=== PATIENT | male | born 1955 | race Caucasian/White ===

== ENCOUNTER 2016-11-30 01:53 | Emergency (ER) | payer OTHER ==
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
[2016-11-30] MEDS ORDERED: 0.9% Sodium Chloride 1,000 ML IV ONE (02:03)
[2016-11-30] MEDS ORDERED: 0.9% Sodium Chloride 2,000 ML IV ONE (02:03)
[2016-11-30] MEDS ORDERED: Ondansetron 2 mg/mL 2 mL Inj IVPUSH PRN (02:05)
[2016-11-30] MEDS ORDERED: HYDROmorphone 0.5 mg/0.5 mL iSecure Syringe IVPUSH PRN (02:05)
[2016-11-30 02:19] LABS: BASOPHILS % (AUTO) 0.2 % (0-3); EOSINOPHILS % (AUTO) 2.2 % (0-5); MONOCYTES % (AUTO) 4.5 % (4-12); Mean Corpuscular Volume 76.8 fL (81-100); NEUTROPHILS % (AUTO) 74.3 % (40-74); Platelet Count 365 bil/L (150-400)
[2016-11-30 02:38] LABS: INR 1.03 ratio
[2016-11-30] MEDS ORDERED: CeFAZolin 2 Gm/50 mL D5W IV Premix IV ONE (02:45)
[2016-11-30 02:47] LABS: Magnesium 2.2 mg/dL (1.6-2.6)
[2016-11-30 03:28] LABS: APPEARANCE,URINE HAZY (CLEAR,HAZY); COLOR,URINE STRAW (YELLOW); OCCULT BLOOD,URINE MODERATE (NEGATIVE); PH,URINE 5.5 (5.0-8.0); UROBILINOGEN,URINE NORMAL (NORMAL)
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
== END 2016-11-30 04:35 | disposition short-term general hospital (02) ==
LOC: EDBD 01:53 → SED 01:53
DX: S08.112A Complete traumatic amputation of left ear, initial encounter (principal); S01.01XA Laceration without foreign body of scalp, initial encounter; S22.43XA Multiple fractures of ribs, bilateral, initial encounter for closed fracture; S36.00XA Unspecified injury of spleen, initial encounter; S27.1XXA Traumatic hemothorax, initial encounter; Y93.9 Activity, unspecified; Y92.520 Airport as the place of occurrence of the external cause; Y99.8 Other external cause status; Z88.5 Allergy status to narcotic agent
CPT/HCPCS: 36415; 51702; 70450; 71010; 71260; 72125; 73090; 73120; 74177; 80053; 81001; 83735; 85014; 85018; 85025; 85610; 86850; 93005; 96360; 96361; 99291; 99292; G0390; G0480; Q9967